=== PATIENT | male | born 1970 | race Caucasian/White ===

== ENCOUNTER 2023-11-30 09:57 | Emergency (ER) | payer OTHER, SELFPAY ==
[2023-11-30 11:07] VITALS: BP 126/90; BMI 28.4
--- NOTE | 2023-11-30 11:07 | ED.GENMED ---
History of Present Illness
General
Chief Complaint: Back Pain
Time Seen by Provider: 11/30/23 10:56
Travel History
Have you had any contact with someone who has COVID-19?: No
Do you have any symptoms of coronavirus? Fever > 100 degrees, chills, cough, shortness of breath, sore throat, loss of taste or smell, muscle aches, or headache?: No
History of Present Illness
History of Present Illness:
53-year-old male with history of GERD presents to the emergency department for evaluation of left subscapular discomfort that began approximately 8:30 AM today while at work. 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
associated with this job. Pain has persisted since that time. He openly states he is concerned he could be having a IN. He has no history of hypertension, hyperlipidemia, diabetes, coronary artery disease, or tobacco use. Denies any known family
history of coronary artery disease. Denies any associated fever, chills, sweats, nausea, vomiting, diarrhea, extremity paresthesias. Pain is not pleuritic
Past History
Past History
ED Past Medical History: GERD and Other (divertic)
Social History
Tobacco: Non-smoker
Living: with family
Employment: Employed
Review of Systems
Review of Systems
Allergies reviewed?: Yes
All Other Systems: ROS reviewed and negative except as documented in HPI and ROS
Phy Exam
Physical Exam
Physical Exam:
GEN: Well appearing, NAD, WDWN
Eyes: PERRLA, EOMs intact, no scleral icterus
HENT: NCAT, oral mucosa moist
Lungs: CTAB, no wheezes, rales, rhonchi, normal chest wall excursion
Cardiac: RRR, no M/R/G, no peripheral edema. Radial pulses 2+ bilat
Neuro: AO x 3
MSK: No gross deformity or ecchymosis. Subscapular pain is not reproducible on exam
Skin: No rashes, petechiae. Normal color, no pallor or jaundice.
Psych: Calm, cooperative, proper hygiene
Course
Orders/Labs/Results
Orders:
Orders
11/30/23 10:16
Electrocardiogram (*1) Urgent
Reason for Study: Chest Pain
EKG- Treatment ONCE
11/30/23 11:06
Complete Blood Count/With Diff Urgent
Comprehensive Metabolic Panel Urgent
Troponin I Urgent
11/30/23 11:07
CR Chest - 2 Views Urgent
Comment:
Reason For Exam: thoracic back pain
11/30/23 13:16
Troponin I Routine
Abnormal Lab Results
11/30/23
11:06
MCH 33.6 H pg
(27.0-31.0)
Glucose 138 H mg/dl
(70-99)
11/30/23 11:06
11/30/23 11:06
Vital Signs
Initial and Last Documented VS:
Initial Vital Signs
Temp Pulse Resp Pulse Ox
98.0 F 59 16 98
11/30/23 10:21 11/30/23 10:21 11/30/23 10:21 11/30/23 10:21
Last Documented Vital Signs
Temp Pulse Resp BP Pulse Ox
98.0 F 45 16 135/88 99
11/30/23 10:21 11/30/23 14:05 11/30/23 10:21 11/30/23 14:05 11/30/23 13:20
MDM/Problems Addressed
MDM/Problems Addressed:
Patient's cardiac workup is unremarkable. Although his pain is quite vague in nature and is not clearly musculoskeletal. His vital signs are unremarkable, he has essentially no cardiac risk factors with the exception of age over 45. Delta
troponin was obtained due to the acute presentation and this remained stable and undetectable. Doubt PE given stable vital signs and lack of pleuritic pain. Chest x-ray independently interpreted by me as negative for acute pathology. Unclear
etiology but recommend [id number] supportive medications such as Tylenol or ibuprofen with close primary care follow-up
Comment
Comment:
EKG independently interpreted by me shows normal sinus rhythm at a rate of [address] changes concerning for ischemia, QTc of 425
*Critical Care Note
Total Time (30-74mins, 75-104mins- exclusive of procedures): Not Applicable
ED Attending Note
-
Portions of this chart may have been created with voice recognition software.� Occasional wrong word or��sound alike� substitutions may have occurred due to the inherent limitations of voice recognition software.
Discharge Plan
Departure
Patient Disposition: Home (Routine Discharge)
Date of Disposition: 11/30/23
Time of Disposition: 13:58
Patient with high blood pressure during this ER visit?: No
Discharge Problem:
Acute left-sided thoracic back pain
Instructions: Upper Back Pain (DC)
Referrals:
Lakhwinder Dunlap DO [Family Provider] -
Sanchez Mejia MD [Active] -
Activity Restrictions/Additional Instructions:
There is no evidence on your blood work or EKG that this pain is related directly to your heart however it would not be unreasonable to follow-up with a broke beater if you continue to have symptoms. Please follow-up with your primary care
physician in 1 to 2 weeks.
Interventions
Interventions:
*Risk Screen - Suicide Last Done: 11/30/23 11:25
*General Assessment Last Done: 11/30/23 11:25
*Neglect/Abuse Screening Last Done: 11/30/23 11:25
ED- Fall Risk Assessment Last Done: 11/30/23 11:26
*ED COVID-19 Vaccine History Last Done: 11/30/23 10:21
*Nursing Disposition Last Done: 11/30/23 14:05
ED-Musculoskeletal Assessment Last Done: 11/30/23 11:26
Discharge Date and Time
Discharge Date/Time: 11/30/23 14:06
[2023-11-30 11:13] LABS: % Basophils 1.2 % (0-2); % Eosinophils 3.6 % (0-6); % Immature Granulocytes 0.2 % (0-0.5); % Monocytes 7.4 % (1.7-9.3); % Neutrophils 58.6 % (42.2-75.2); Absolute Basophils 0.1 10^3/uL (0-0.2); Absolute Eosinophils 0.2 10^3/uL (0-0.7); Absolute Lymphocytes 1.5 10^3/uL (1.2-3.4); Absolute Monocytes 0.4 10^3/uL (0.1-0.6); Hematocrit 43.1 % (39.0-52.0); Hemoglobin 15.9 g/dL (13.0-18.0); Mean Corp Hgb Conc. 36.9 g/dL (33.0-37.0); Mean Corpuscular Hgb 33.6 pg (27.0-31.0); Mean Corpuscular Volume 91.1 fL (80.0-94.0); Mean Platelet Volume 9.2 fL (7.4-10.4); Nucleated Red Blood Cells % 0 % (-); Platelet Count 219 10^3/uL (130-400); Red Blood Cell Count 4.73 10^6/uL (4.70-6.10); Red Cell Dist. Width 11.7 % (11.5-14.5)
[2023-11-30 11:35] LABS: ALT (SGPT) 33 U/L (0-50); AST (SGOT) 25 U/L (17-59); Albumin 4.3 g/dl (3.5-5.0); Alkaline Phosphatase 78 U/L (38-126); Blood Urea Nitrogen 15 mg/dl (9-20); Carbon Dioxide 25 mmol/L (22-30); Chloride 105 mmol/L (98-107); Estimated Creatinine Clearance 87 ml/min; Glucose 138 mg/dl (70-99); Potassium 3.9 mmol/L (3.5-5.1); Sodium 136 mmol/L (135-145); Total Bilirubin 0.5 mg/dl (0.2-1.3); Total Protein 6.4 g/dl (6.3-8.2); eGFR > 60.00
[2023-11-30 11:45] LABS: Troponin I < 0.012 ng/ml
[2023-11-30 12:09] VITALS: BP 125/88
[2023-11-30 13:00] VITALS: BP 127/88
[2023-11-30 13:20] VITALS: BP 135/88
[2023-11-30 13:47] LABS: Troponin I < 0.012 ng/ml
[2023-11-30 14:05] VITALS: BP 135/88
== END 2023-11-30 14:06 | disposition home or self-care (01) ==
LOC: EMR 09:57
PROVIDERS: Physician Assistant; EMERGENCY PHYSICIAN Student in an Organized Health Care Education/Training Program; FAMILY PHYSICIAN Family Medicine
DX: M54.6 Pain in thoracic spine (principal); K21.9 Gastro-esophageal reflux disease without esophagitis
CPT/HCPCS: 99285; 71046; 80053; 84484; 85025; 93005

== ENCOUNTER → 2024-08-12 09:28 | Outpatient (REF) | payer OTHER, SELFPAY | LOC: RAD 09:28 | PROVIDERS: ATTENDING PHYSICIAN Physician Assistant Surgical; FAMILY PHYSICIAN Family Medicine | DX: S05.50XA Penetrating wound with foreign body of unspecified eyeball, initial encounter (principal) | CPT/HCPCS: 70030 ==

== ENCOUNTER → 2025-03-29 16:33 | Outpatient (REF) | payer OTHER, SELFPAY | LOC: HWRAD 16:33 | PROVIDERS: ATTENDING PHYSICIAN Family Medicine; FAMILY PHYSICIAN Family Medicine | DX: R05.9 Cough, unspecified (principal); J45.909 Unspecified asthma, uncomplicated; B07.9 Viral wart, unspecified; N52.9 Male erectile dysfunction, unspecified | CPT/HCPCS: 71046 ==